=== PATIENT | female | born 1965 | race Hispanic/Latino ===

== ENCOUNTER 2021-08-12 08:32 | Outpatient (CLI) | payer BC | END 2021-08-12 08:33 | disposition home or self-care (01) | LOC: CSHMAMMO 08:32 | PROVIDERS: ATTEND Internal Medicine | DX: Z12.31 Encounter for screening mammogram for malignant neoplasm of breast (principal) | CPT/HCPCS: 77063; 77067 ==

== ENCOUNTER 2022-11-09 09:49 | Outpatient (CLI) | payer BC | END 2022-11-09 09:50 | disposition home or self-care (01) | LOC: CSHMAMMO 09:49 | PROVIDERS: ATTEND Internal Medicine | DX: Z13.820 Encounter for screening for osteoporosis (principal); M85.89 Other specified disorders of bone density and structure, multiple sites; Z78.0 Asymptomatic menopausal state | CPT/HCPCS: 77080 ==

== ENCOUNTER 2022-12-26 06:23 | Day surgery (SDC) | payer BC ==
[2022-12-22 14:32] VITALS: BMI 25.7
[2022-12-26] MEDS ORDERED: PROPOFOL 40 ML ONE (08:21)
[2022-12-26] MEDS ORDERED: Fentanyl 100 MCG/2 ML VIAL ONE (08:21)
[2022-12-26] MEDS ORDERED: Lidocaine 1% PF 5 ML VIAL ONE (08:22)
== END 2022-12-26 09:07 | disposition home or self-care (01) ==
LOC: CSHSDC 06:23
PROVIDERS: ATTEND Internal Medicine Gastroenterology
PROC: 0DJ08ZZ Inspection of Upper Intestinal Tract, Via Natural or Artificial Opening Endoscopic (ICD-10-PCS; principal; 2022-12-26)
DX: K21.9 Gastro-esophageal reflux disease without esophagitis (principal); K75.4 Autoimmune hepatitis; E11.9 Type 2 diabetes mellitus without complications; I10 Essential (primary) hypertension; E78.5 Hyperlipidemia, unspecified; Z79.899 Other long term (current) drug therapy
CPT/HCPCS: J2704; J3010

== ENCOUNTER 2023-09-14 08:55 | Outpatient (CLI) | payer BC | END 2023-09-14 08:56 | disposition home or self-care (01) | LOC: CSHMAMMO 08:55 | PROVIDERS: ATTEND Internal Medicine | DX: Z12.31 Encounter for screening mammogram for malignant neoplasm of breast (principal) | CPT/HCPCS: 77063; 77067 ==

== ENCOUNTER 2024-02-26 08:27 | Outpatient (CLI) | payer BC | END 2024-02-26 08:28 | disposition home or self-care (01) | LOC: CSHULT 08:27 | PROVIDERS: ATTEND Internal Medicine Gastroenterology | DX: K75.4 Autoimmune hepatitis (principal) | CPT/HCPCS: 76700 ==

== ENCOUNTER 2024-09-16 08:20 | Outpatient (CLI) | payer BC | END 2024-09-16 08:21 | disposition home or self-care (01) | LOC: CSHULT 08:20 | PROVIDERS: ATTEND Internal Medicine Gastroenterology | DX: K75.4 Autoimmune hepatitis (principal); K76.9 Liver disease, unspecified | CPT/HCPCS: 76705 ==

== ENCOUNTER 2025-08-21 08:31 | Outpatient (CLI) | payer BC ==
[2025-08-21 09:33] LABS: Estimated GFR - POC 99.0
== END 2025-08-21 08:32 | disposition home or self-care (01) ==
LOC: CSHMRI 08:31
PROVIDERS: ATTEND Internal Medicine Gastroenterology
DX: K75.4 Autoimmune hepatitis (principal); K59.00 Constipation, unspecified; R16.0 Hepatomegaly, not elsewhere classified
CPT/HCPCS: 36415; 74183; 82565